=== PATIENT | male | born 1950 | race Caucasian/White ===

== ENCOUNTER → 2021-01-14 | Outpatient (CLI) | payer OTHER | END | disposition home or self-care (01) | LOC: CARD 12-26 08:30 | PROVIDERS: ATTEND Nurse Practitioner Family | DX: I08.0 Rheumatic disorders of both mitral and aortic valves (principal); I70.0 Atherosclerosis of aorta; I77.819 Aortic ectasia, unspecified site ==

== ENCOUNTER → 2024-08-25 | Outpatient (CLI) | payer OTHER ==
[2024-08-25 09:27] LABS: HEMATOCRIT 46.1 % (42.0-52.0); MEAN CELL VOLUME 85.1 fl (80.0-94.0); MEAN CORPUSCULAR HGB 28.8 pg (27.0-31.0); MEAN CORPUSCULAR HGB CONC 33.8 g/dl (33.0-37.0); MEAN PLATELET VOLUME 11.3 fl (9.6-12.3); RED BLOOD COUNT 5.42 10*6/uL (4.50-5.90); RED CELL DISTRI WIDTH 11.7 % (0-14.5); WHITE BLOOD COUNT 10.7 10*3/uL (4.8-10.8)
[2024-08-25 09:46] LABS: ALKALINE PHOSPHATASE 100 U/L (46-116); BUN 19 mg/dl (9-23); CHLORIDE 104 mmol/L (98-107); CHOLESTEROL 111 mg/dL (<200); CPK 95 U/L (34-171); LDL CHOLESTEROL 63 mg/dL (9-159); POTASSIUM 3.8 mmol/L (3.4-5.1); SGPT/ALT 16 U/L (5-49); TRIGLYCERIDES 87 mg/dl (<150)
[2024-08-25 10:07] LABS: VITAMIN D, 25-HYDROXY 31.8 ng/mL (30-100)
== END | disposition home or self-care (01) ==
LOC: LAB 09:07
PROVIDERS: ATTEND Family Medicine
DX: Z12.5 Encounter for screening for malignant neoplasm of prostate (principal); I10 Essential (primary) hypertension; E11.9 Type 2 diabetes mellitus without complications; E55.9 Vitamin D deficiency, unspecified; E78.00 Pure hypercholesterolemia, unspecified